=== PATIENT | female | born 1985 ===

== ENCOUNTER 2023-07-26 13:13 | Emergency (ER) | payer SELFPAY ==
[2023-07-26 13:20] VITALS: BP 134/76; PULSE 70; O2SAT 99
[2023-07-26 13:40] VITALS: BP 130/70; PULSE 55; RESP 19; TEMP 36.6; O2SAT 98; BMI 21.6
--- NOTE | 2023-07-26 13:41 | ED.GENADULT ---
HPI - General Adult General Chief complaint: Eye Problems Stated complaint: OCULAR MIGRAINE Related Data Allergies Allergy/AdvReac Type Severity Reaction Status Date / Time amoxicillin Allergy Hives Verified 07/26/23 13:40 [facility] Social History Advance Directives: No Physical Exam ED Vital Signs: BMI result Body Mass Index 21.6 Course Course Course Narrative: This is an RME: Additional HPI, ROS, PE not included below will be deferred to primary provider. This is a [id number], with a hx endometriosis, adenomyosis, presenting to the emergency department with a complaint of bilateral loss of vision which lasted 5 minutes. States that 1hour and 15 minutes ago she had vision changes and complete loss of vision for 5 minutes. States that she had no headache at that time. She states that her left eye is still about 90% at what it typically is. Pt is fully neurologically intact. NIH stroke scale 0. Discussed case with attending physician, Dr. Rea, who given NIH score 0, CT head not indicated. Plan: Labs, Upreg, further ER evaluation needed. Reevaluation(s) Reevaluation #1: Pt left prior to evaluation Discharge Plan Discharge Clinical Impression: Headache Patient Disposition: Left W/O Completing Treatment Discharge Date/Time: 07/26/23 15:31
== END 2023-07-26 15:31 | disposition left against medical advice (07) ==
PROVIDERS: Emergency Provider Emergency Medicine
DX: R51.9 Headache, unspecified (principal)
CPT/HCPCS: 99281; 99282